=== PATIENT | male | born 1995 | race African-American/Black ===

== ENCOUNTER 2018-12-21 09:36 | Emergency (ER) | payer BC ==
[~2018-12-21] VITALS: Ht 185.4 cm; Wt 70.3 kg
[2018-12-21 11:38] VITALS: BP 120/62
== END 2018-12-21 11:30 | disposition home or self-care (01) ==
LOC: ER 09:36
DX: S92.511A Displaced fracture of proximal phalanx of right lesser toe(s), initial encounter for closed fracture (principal); W22.01XA Walked into wall, initial encounter; Y93.89 Activity, other specified; Y92.89 Other specified places as the place of occurrence of the external cause; Y99.8 Other external cause status

== ENCOUNTER 2020-01-19 14:33 | Emergency (ER) | payer BC ==
[~2020-01-19] VITALS: Ht 182.9 cm; Wt 72.6 kg
[2020-01-19 14:41] VITALS: BP 126/73
[2020-01-19 15:03] LABS: URINE BILIRUBIN NEGATIVE (Negative); URINE BLOOD 1+ (Negative); URINE CLARITY SL CLOUDY; URINE COLOR YELLOW; URINE GLUCOSE-RANDOM* NEGATIVE (Negative); URINE KETONES NEGATIVE (Negative); URINE NITRITE-REFLEX NEGATIVE (Negative); URINE PROTEIN (DIPSTICK) NEGATIVE (Negative); URINE UROBILINOGEN 0.2 E.U./dl (0.2-1.0)
[2020-01-19 15:07] LABS: URINE LEUKOCYTES-REFLEX 2+ (Negative)
[2020-01-19 15:25] LABS: BACTERIA-REFLEX 1-9 Few /HPF (None Seen); CASTS None Seen /LPF (None Seen); CRYSTALS None Seen /LPF (None Seen); SQUAMOUS None Seen /LPF (0-3); URINE RBC None Seen /HPF (0-2); URINE WBC-REFLEX >25 Many /HPF (0-5)
--- NOTE | 2020-01-21 19:36 | NUR ---
01/21 1936 ATTEMPT X3 TO CALL RESULTS FOR POSITIVE GONORRHEA
== END 2020-01-19 15:35 | disposition home or self-care (01) ==
LOC: ER 14:33
PROVIDERS: Physician Assistant
DX: R36.9 Urethral discharge, unspecified (principal)